=== PATIENT | female | born 1990 | race American Indian/Alaskan Native ===

== ENCOUNTER 2016-09-13 09:02 | Emergency (ER) | payer SELFPAY ==
[2016-09-13 09:14] VITALS: BP 121/74
[2016-09-13 09:47] LABS: Bilirubin,Urine NEG (Negative); Blood,Urine MOD (Negative); Ketones,Urine 20 mg/dL (Negative); Leukocyte Esterase,Urine MOD (Negative); Mucus,Urine FEW /HPF; Nitrite,Urine NEG (Negative); Protein,Urine <15 mg/dL mg/dL (Negative); Urobilinogen,Urine < 2.0 mg/dL (<2.0)
[2016-09-13 10:09] LABS: Basophils % (Auto) 0.2 % (0.0-1.8); Eosinophils % (Auto) 0.4 % (0.0-4.3); Hematocrit 42.5 % (30.3-42.9); Hemoglobin 14.2 gm/dl (10.1-14.3); Mean Corpuscular HGB Conc 33 % (30-34); Mean Corpuscular Hemoglobin 31 pg (28-32); Mean Corpuscular Volume 92 fl (79-97); Platelet Count 269 K/mm3 (140-440); Red Blood Count 4.62 M/mm3 (3.65-5.03); White Blood Count 6.9 K/mm3 (4.5-11.0)
[2016-09-13 10:19] LABS: Anion Gap 17 mmol/L; BUN/Creatinine Ratio 21.66; Blood Urea Nitrogen 13 mg/dL (7-17); Calcium 9.2 mg/dL (8.4-10.2); Carbon Dioxide 24 mmol/L (22-30); Glucose 106 mg/dL (65-100); Sodium 140 mmol/L (137-145)
--- NOTE | 2016-09-13 10:19 | Emergency Department Report ---
ED General Adult HPI - General Chief complaint: Abdominal Pain Stated complaint: DEHYDRATED/CHECK IUD Time Seen by Provider: 09/13/16 10:00 Source: patient Mode of arrival: Ambulatory Limitations: No Limitations - History of Present Illness Initial comments: Patient comes in the ER today with generalized complaints of increased thirst all the time, weight loss, generalized fatigue and simply wanted to get checked out. Patient does mention that she has a history of gestational diabetes when she was 5 years ago and is concerned that she might be a diabetic. Patient also concerned that she may have thyroid problems going on but denies any past history of thyroid problems. Patient states that she just cut off her menses cycle and denies any dysuria. Patient states that she has been feeling this way for approximately one week. Severity scale (0 -10): 3 - Related Data Previous Rx's Medication Instructions Recorded Last Taken Type Ciprofloxacin HCl [Ciprofloxacin 500 mg PO BID #14 tablet 09/13/16 Unknown Rx TAB] Allergies Allergy/AdvReac Type Severity Reaction Status Date / Time No Known Allergies Allergy Verified 10/25/15 22:42 ED Review of Systems ROS: Stated complaint: DEHYDRATED/CHECK IUD Other details as noted in HPI Constitutional: denies: chills, fever Eyes: denies: eye pain, eye discharge, vision change ENT: denies: ear pain, throat pain, congestion Respiratory: denies: cough, shortness of breath, wheezing Cardiovascular: denies: chest pain, palpitations, edema, syncope Endocrine: no symptoms reported, increased thirst, unexplained weight loss Gastrointestinal: denies: abdominal pain, nausea, vomiting, diarrhea, constipation Genitourinary: denies: urgency, dysuria, frequency, hematuria, discharge, abnormal menses Musculoskeletal: denies: back pain, joint swelling, arthralgia Skin: denies: rash, lesions, change in color Neurological: denies: headache, weakness, paresthesias Psychiatric: denies: anxiety, depression Hematological/Lymphatic: denies: easy bleeding, easy bruising ED Past Medical Hx - Past Medical History Previous Medical History?: No Additional medical history: thyroid - Surgical History Past Surgical History?: No - Social History Smoking Status: Never Smoker Substance Use Type: None - Medications Home Medications: Home Medications Medication Instructions Recorded Confirmed Last Taken Type Ciprofloxacin HCl [Ciprofloxacin 500 mg PO BID #14 tablet 09/13/16 Unknown Rx TAB] ED Physical Exam - General Limitations: No Limitations General appearance: alert, in no apparent distress - Head Head exam: Present: atraumatic, normocephalic, normal inspection - Eye Eye exam: Present: normal appearance, PERRL, EOMI Pupils: Present: normal accommodation - ENT ENT exam: Present: normal exam, normal orophraynx, mucous membranes moist, TM's normal bilaterally, normal external ear exam - Neck Neck exam: Present: normal inspection, full ROM. Absent: tenderness, lymphadenopathy, thyromegaly - Respiratory Respiratory exam: Present: normal lung sounds bilaterally. Absent: respiratory distress, wheezes, rales, rhonchi, stridor, chest wall tenderness, decreased breath sounds - Cardiovascular Cardiovascular Exam: Present: regular rate, normal rhythm. Absent: systolic murmur, diastolic murmur, rubs, gallop - GI/Abdominal GI/Abdominal exam: Present: soft, normal bowel sounds. Absent: distended, tenderness, guarding, rebound, rigid, organomegaly - Extremities Exam Extremities exam: Present: normal inspection, normal capillary refill. Absent: pedal edema - Back Exam Back exam: Present: normal inspection, full ROM. Absent: tenderness, CVA tenderness (R), CVA tenderness (L) - Neurological Exam Neurological exam: Present: alert, oriented X3, CN II-XII intact, normal gait, reflexes normal. Absent: motor sensory deficit - Psychiatric Psychiatric exam: Present: normal affect, normal mood - Skin Skin exam: Present: warm, dry, intact, normal color. Absent: rash ED Course Vital Signs 09/13/16 09:07 Temperature 98.5 F Pulse Rate 79 Respiratory 16 Rate Blood Pressure 121/74 Blood Pressure 121/78 [Left] O2 Sat by Pulse 99 Oximetry ED Medical Decision Making - Lab Data Result diagrams: 09/13/16 09:18 09/13/16 09:18 Lab Results 09/13/16 09/13/16 09/13/16 Range/Units 09:18 09:18 09:24 WBC 6.9 (4.5-11.0) K/mm3 RBC 4.62 (3.65-5.03) M/mm3 Hgb 14.2 (10.1-14.3) gm/dl Hct 42.5 (30.3-42.9) % MCV 92 (79-97) fl MCH 31 (28-32) pg MCHC 33 (30-34) % RDW 13.0 L (13.2-15.2) % Plt Count 269 (140-440) K/mm3 Lymph % (Auto) 24.7 (13.4-35.0) % [place] % (Auto) 4.6 (0.0-7.3) % Eos % (Auto) 0.4 (0.0-4.3) % Baso % (Auto) 0.2 (0.0-1.8) % Lymph # 1.7 (1.2-5.4) K/mm3 [place] # 0.3 (0.0-0.8) K/mm3 Eos # 0.0 (0.0-0.4) K/mm3 Baso # 0.0 (0.0-0.1) K/mm3 Seg Neutrophils % 70.1 H (40.0-70.0) % Seg Neutrophils # 4.9 (1.8-7.7) K/mm3 Sodium 140 (137-145) mmol/L Potassium 4.0 (3.6-5.0) mmol/L Chloride 103.0 (98-107) mmol/L Carbon Dioxide 24 (22-30) mmol/L Anion Gap 17 mmol/L BUN 13 (7-17) mg/dL Creatinine 0.6 L (0.7-1.2) mg/dL Estimated GFR > 60 ml/min BUN/Creatinine Ratio 21.66 % Glucose 106 H (65-100) mg/dL Calcium 9.2 (8.4-10.2) mg/dL TSH (0.270-4.200) mlU/mL Urine Color Yellow (Yellow) Urine Turbidity Clear (Clear) Urine pH 5.0 (5.0-7.0) Ur Specific [place] 1.020 (1.003-1.030) Urine Protein <15 mg/dl (Negative) mg/dL Urine Glucose (UA) Neg (Negative) mg/dL Urine Ketones 20 (Negative) mg/dL Urine Blood Mod (Negative) Urine Nitrite Neg (Negative) Ur Reducing Substances Not Reportable Urine Bilirubin Neg (Negative) Urine Ictotest Not Reportable Urine Urobilinogen < 2.0 (<2.0) mg/dL Ur Leukocyte Esterase Mod (Negative) Urine WBC (Auto) 1.0 (0.0-6.0) /HPF Urine RBC (Auto) 8.0 (0.0-6.0) /HPF U Epithel Cells (Auto) 5.0 (0-13.0) /HPF Urine Mucus Few /HPF Urine HCG, Qual Negative (Negative) 09/13/16 Range/Units 10:55 WBC (4.5-11.0) K/mm3 RBC (3.65-5.03) M/mm3 Hgb (10.1-14.3) gm/dl Hct (30.3-42.9) % MCV (79-97) fl MCH (28-32) pg MCHC (30-34) % RDW (13.2-15.2) % Plt Count (140-440) K/mm3 Lymph % (Auto) (13.4-35.0) % [place] % (Auto) (0.0-7.3) % Eos % (Auto) (0.0-4.3) % Baso % (Auto) (0.0-1.8) % Lymph # (1.2-5.4) K/mm3 [place] # (0.0-0.8) K/mm3 Eos # (0.0-0.4) K/mm3 Baso # (0.0-0.1) K/mm3 Seg Neutrophils % (40.0-70.0) % Seg Neutrophils # (1.8-7.7) K/mm3 Sodium (137-145) mmol/L Potassium (3.6-5.0) mmol/L Chloride (98-107) mmol/L Carbon Dioxide (22-30) mmol/L Anion Gap mmol/L BUN (7-17) mg/dL Creatinine (0.7-1.2) mg/dL Estimated GFR ml/min BUN/Creatinine Ratio % Glucose (65-100) mg/dL Calcium (8.4-10.2) mg/dL TSH 0.334 (0.270-4.200) mlU/mL Urine Color (Yellow) Urine Turbidity (Clear) Urine pH (5.0-7.0) Ur Specific [place] (1.003-1.030) Urine Protein (Negative) mg/dL Urine Glucose (UA) (Negative) mg/dL Urine Ketones (Negative) mg/dL Urine Blood (Negative) Urine Nitrite (Negative) Ur Reducing Substances Urine Bilirubin (Negative) Urine Ictotest Urine Urobilinogen (<2.0) mg/dL Ur Leukocyte Esterase (Negative) Urine WBC (Auto) (0.0-6.0) /HPF Urine RBC (Auto) (0.0-6.0) /HPF U Epithel Cells (Auto) (0-13.0) /HPF Urine Mucus /HPF Urine HCG, Qual (Negative) - Medical Decision Making Patient is nontoxic and hemodynamically stable. Laboratory studies ordered for further evaluation of patient's health. Results obtained and reviewed with patient room. I informed patient that she does not have any lab findings consistent with concerns for diabetes, anemia however her TSH levels are on the low end of normal which could be concerning for possible early hyperthyroidism. I discussed this with patient and I will refer patient to executive advisor for further evaluation and testing as appropriate. Patient is stable for discharge and is agreement with treatment plan. Critical care attestation.: If time is entered above; I have spent that time in minutes in the direct care of this critically ill patient, excluding procedure time. ED Disposition Clinical Impression: UTI (urinary tract infection), Weight loss, unintentional, Excessive thirst Disposition: DISCHARGED TO HOME OR SELFCARE Is pt being admited?: No Does the pt Need Aspirin: No Condition: Good Instructions: Urinary Tract Infection in Women (ED), Hyperthyroidism (ED) Prescriptions: Ciprofloxacin HCl [Ciprofloxacin TAB] 500 mg PO BID #14 tablet Referrals: PRIMARY CAREMD [Primary Care Provider] - 3-5 Days JOSE RENTERIA MD [Staff Physician] - 3-5 Days Time of Disposition: 12:28
== END 2016-09-13 12:37 | disposition home or self-care (01) ==
LOC: ED 09:02
DX: N39.0 Urinary tract infection, site not specified (principal); R63.4 Abnormal weight loss; R63.1 Polydipsia
CPT/HCPCS: 36415; 80048; 81001; 81025; 84443; 85025; 99283

== ENCOUNTER 2017-02-08 16:14 | Emergency (ER) | payer MEDICAID, OTHER ==
--- NOTE | 2017-02-08 17:52 | Emergency Department Report ---
Minor Respiratory - HPI Chief Complaint: Headache Stated Complaint: Possible sinus infection Time Seen by Provider: 02/08/17 17:34 Duration: 4 Days Pain Location: Facial, Nose Severity: moderate Minor Respiratory: Yes Rhinorrhea, Yes Able to Tolerate Fluids, No Sore Throat, No Ear Pain, No Cough, No Sick Contacts, No Hemoptysis, No Chest Pain, No Shortness of Breath, No Fever Other History: Pt reports sinus congestion/pain with green mucus x 3-4 days. No other complaints. No fever. ED Review of Systems ROS: Stated complaint: Possible sinus infection Other details as noted in HPI Comment: All other systems reviewed and negative Constitutional: denies: chills, fever Eyes: denies: eye pain, eye discharge, vision change ENT: congestion. denies: ear pain, throat pain Respiratory: denies: cough, shortness of breath, wheezing Cardiovascular: denies: chest pain, palpitations Endocrine: no symptoms reported Gastrointestinal: denies: abdominal pain, nausea, diarrhea Genitourinary: denies: urgency, dysuria, discharge Musculoskeletal: denies: back pain, joint swelling, arthralgia Skin: denies: rash, lesions Neurological: as per HPI, headache. denies: weakness, paresthesias Psychiatric: denies: anxiety, depression Hematological/Lymphatic: denies: easy bleeding, easy bruising ED Past Medical Hx - Past Medical History Previous Medical History?: Yes Additional medical history: thyroid - Surgical History Past Surgical History?: No - Social History Smoking Status: Never Smoker Substance Use Type: Prescribed - Medications Home Medications: Home Medications Medication Instructions Recorded Confirmed Last Taken Type Amoxicillin/Potassium Clav 1 each PO BID #20 tablet 02/08/17 Unknown Rx [Augmentin 875-125 Tablet] Fluticasone [Flonase] 2 spray NS QDAY #1 bottle 02/08/17 Unknown Rx Minor Respiratory Exam - Exam General: Vital signs noted. No distress. Alert and acting appropriately. HEENT: Yes Moist Mucous Membranes, Yes Maxillary Tenderness (R side), No Pharyngeal Erythema, No Pharyngeal Exudates, No Rhinorrhea, No Conjuctival Injection, No Frontal Tenderness Ear: Neither TM Bulge, Neither TM Erythema, Neither EAC Pain, Neither EAC Discharge Neck: Yes Adenopathy (mild cervical), Yes Supple (no meningeal signs) Lungs: Yes Good Air Exchange, No Wheezes, No Ronchi, No Stridor, No Cough, No Labored Respirations, No Retractions, No Use of Accessory Muscles, No Other Abnormal Lung Sounds Heart: Yes Regular, No Murmur Abdomen: Yes Normal Bowel Sounds, No Tenderness, No Peritoneal Signs Skin: No Rash, No Edema Neurologic: Alert and oriented, no deficits. Musculoskeletal: Unremarkable. ED Course Vital Signs 02/08/17 16:44 Temperature 98.1 F Pulse Rate 82 Respiratory 18 Rate Blood Pressure 109/74 O2 Sat by Pulse 98 Oximetry - Reevaluation(s) Reevaluation #1: 02/08/17 17:49 Pt is in NAD and stable for d/c. ED Medical Decision Making - Medical Decision Making Pt with acute sinusitis, R maxillary. Will give Augmentin and Flonase and have her follow with PCP. - Differential Diagnosis sinusitis, uri, allergies Critical care attestation.: If time is entered above; I have spent that time in minutes in the direct care of this critically ill patient, excluding procedure time. ED Disposition Clinical Impression: Acute maxillary sinusitis, unspecified Qualifiers: Recurrence: not specified as recurrent Qualified Code(s): J01.00 - Acute maxillary sinusitis, unspecified Disposition: - TO HOME OR SELFCARE Is pt being admited?: No Condition: Good Instructions: Sinusitis (ED) Prescriptions: Amoxicillin/Potassium Clav [Augmentin 875-125 Tablet] 1 each PO BID #20 tablet Fluticasone [Flonase] 2 spray NS QDAY #1 bottle Referrals: PRIMARY CARE, [Primary Care Provider] - 3-5 Days Time of Disposition: 17:51
[2017-02-08 18:03] VITALS: BP 119/76
== END 2017-02-08 18:03 | disposition home or self-care (01) ==
LOC: ED 16:14
DX: J01.00 Acute maxillary sinusitis, unspecified (principal)
CPT/HCPCS: 99282

== ENCOUNTER 2017-08-04 07:54 | Emergency (ER) | payer MEDICAID ==
[2017-08-04 08:29] VITALS: BP 108/69
--- NOTE | 2017-08-04 09:00 | Emergency Department Report ---
ED Back Pain/Injury HPI - General Chief Complaint: Back Pain/Injury Stated Complaint: BACK PAIN Time Seen by Provider: 08/04/17 08:36 Source: patient Limitations: No Limitations - History of Present Illness Initial Comments: Patient reports that she has mid left upper back pain. She stated that she slept on the cell phone Friday night and woke up Friday morning with backache. Pain is 4-10 and aching. Denies any numbness or tingling to extremities. Denies any trauma. Denies any vaginal bleeding or discharge. Denies any urinary burning, frequency or urgency. Denies any nausea or vomiting. Denies any abdominal pain. Denies any fever or chills. No medication taken pain is worse with leaning forward better at rest. Denies history of blood clots, swelling to legs, family history of blood clots and her control pills. Denies recent long distance travel. She denies any chest pain or shortness of breath MD Complaint: back pain Onset/Timin -: days(s) Similar Symptoms Previously: No Place: home Radiation: none Severity: mild Severity scale (0 -10): 4 Quality: aching Consistency: intermittent Improves With: other (rest) Worsens With: other (leaning forward) Context: other (patient reports that she slept on hard sofa and when she woke up she has left upper back pain) Associated Symptoms: denies: confusion, weakness, chest pain, numbness, difficulty walking, cough, difficulty urinating, diaphoresis, incontinence, fever/chills, constipation, headaches, abdominal pain, loss of appetite, malaise , nausea/vomiting, rash, seizure, shortness of breath, syncope Treatments Prior to Arrival: other (none) - Related Data Previous Rx's Medication Instructions Recorded Last Taken Type Amoxicillin/Potassium Clav 1 each PO BID #20 tablet 02/08/17 Unknown Rx [Augmentin 875-125 Tablet] Fluticasone [Flonase] 2 spray NS QDAY #1 bottle 02/08/17 Unknown Rx Azelastine 0.1% (Nf) [Astelin (Nf)] 137 mcg NS QDAY PRN #1 bottle 02/12/17 Unknown Rx Loratadine [Claritin] 10 mg PO DAILY PRN #30 tablet 02/12/17 Unknown Rx Naproxen 250 mg PO BID PRN #30 tablet 02/12/17 Unknown Rx Ondansetron [Zofran Odt] 4 mg PO Q8H PRN #8 tab.rapdis 02/12/17 Unknown Rx Naproxen 500 mg PO Q12H PRN #12 tablet 08/04/17 Unknown Rx Allergies Allergy/AdvReac Type Severity Reaction Status Date / Time No Known Allergies Allergy Verified 10/25/15 22:42 ED Review of Systems ROS: Stated complaint: BACK PAIN Other details as noted in HPI Comment: All other systems reviewed and negative Constitutional: no symptoms reported Respiratory: no symptoms reported Cardiovascular: denies: chest pain, palpitations, dyspnea on exertion, edema, syncope, paroxysmal nocturnal dyspnea Gastrointestinal: denies: abdominal pain, nausea, vomiting, constipation Genitourinary: denies: dysuria, frequency, hematuria, discharge, abnormal menses , dyspareunia Musculoskeletal: back pain. 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 denies: Family history: no significant family history - Social History Smoking Status: Never Smoker Alcohol use: none Drug use: none ED Back Pain Physical Exam - Exam General: Vital signs noted. No distress. Alert and acting appropriately. This is a 27-year-old female well-nourished well-developed in no acute distress Lungs:Clear Auscultated bilaterally nor rhonchi wheezes or rales CV: S2: Regular rate and rhythm Psych: Normal mood and behavior Skin: Clean dry and intact and no rash or lesions Neurological: Neurological: GCS at 15, Pt is alert and oriented 3 speech is clear . Bilateral hand chief nuclear medicine technologist strong and equal. Normal gait. Negative Romberg and no pronator drift. Normal Reflexes. No motor or sensory deficit Back/Abdomen: No Abdominal Tenderness (nontender to palpate in all quadrants), No Perithoracic Tenderness (nontender to palpate bilaterally), No Perilumbar Tenderness (on tender to palpate), No Sacroiliac Tenderness (nontender to palpate), No Flank Tenderness (no CVA tenderness), No Straight Leg Raise Pain ( negative straight leg raises bilateral. No saddle anesthesia) Neuro: Yes Normal Sensation, Yes Normal DTR's, Yes Normal Gait (ambulates without any difficulties), No Motor Weakness ED Course Vital Signs 08/04/17 08:26 Temperature 98 F Pulse Rate 77 Respiratory 16 Rate Blood Pressure 108/69 O2 Sat by Pulse 99 Oximetry - Reevaluation(s) Reevaluation #1: 08/04/17 12:06 She given Toradol 60 mg IM in emergency room which relieved her pain. Ed Back Pain Tests - Tests Tests: Normal UA (negative . Urinalysis normal findings. ), Normal X Rays (chest x-ray normal findings) ED Medical Decision Making - Lab Data Lab Results 08/04/17 08/04/17 Range/Units 08:51 09:54 D-Dimer 206.93 (0-234) ng/mlDDU Urine Color Yellow (Yellow) Urine Turbidity Clear (Clear) Urine pH 6.0 (5.0-7.0) Ur Specific [place] 1.020 (1.003-1.030) Urine Protein <15 mg/dl (Negative) mg/dL Urine Glucose (UA) Neg (Negative) mg/dL Urine Ketones Tr (Negative) mg/dL Urine Blood Sm (Negative) Urine Nitrite Neg (Negative) Urine Bilirubin Neg (Negative) Urine Urobilinogen < 2.0 (<2.0) mg/dL Ur Leukocyte Esterase Neg (Negative) Urine WBC (Auto) < 1.0 (0.0-6.0) /HPF Urine RBC (Auto) 13.0 (0.0-6.0) /HPF U Epithel Cells (Auto) 5.0 (0-13.0) /HPF Urine Mucus 1+ /HPF Urine HCG, Qual Negative (Negative) - Radiology Data Radiology results: report reviewed Chest x-ray with negative findings - Medical Decision Making ED course: This is a 27-year-old female here for left upper back pain and believes she injured her back while she was sleeping and heart couch 2 days ago. Pain is localized to the left upper back. Back and neurological exam is normal. Urinalysis normal, d-dimer is negative and based on PERC rule,Patient' s with 0 risk for pulmonary embolism. I discussed results of patient and also diagnosis and treatment plan and she voiced understanding. Patient does have access to primary care but she does not have a primary care doctor. I discussed the patient that I refer her to some outside Medical Center for further evaluation and follow-up for left upper back pain. Patient discharged home with prescription for naproxen. He is given Toradol 60 mg IM in emergency room which relieved her back pain. Critical care attestation.: If time is entered above; I have spent that time in minutes in the direct care of this critically ill patient, excluding procedure time. ED Disposition Clinical Impression: Upper back pain on left side Disposition: DC-01 TO HOME OR SELFCARE Is pt being admited?: No Does the pt Need Aspirin: No Condition: Stable Instructions: Back Pain (ED) Additional Instructions: Please state naproxen as prescribed for back pain See referral to [facility] Prescriptions: Naproxen 500 mg PO Q12H PRN #12 tablet PRN Reason: back pain Referrals: [facility] [Outside] - 2-3 Days Forms: Work/School Release Form(ED)
[2017-08-04] MEDS ORDERED: TORADOL IM ONE (09:02)
[2017-08-04 09:19] LABS: Bilirubin,Urine NEG (Negative); Blood,Urine SM (Negative); Color,Urine Yellow (Yellow); Mucus,Urine 1+ /HPF; Protein,Urine <15 mg/dL mg/dL (Negative); Urobilinogen,Urine < 2.0 mg/dL (<2.0); WBC,Urine < 1.0 /HPF (0.0-6.0)
[2017-08-04 09:30] LABS: HCG Qualitative,Urine Negative (Negative)
--- NOTE | 2017-08-04 10:01 | XRay Report ---
ROUTINE CHEST, TWO VIEWS: HISTORY: Chest pain, left upper back pain. The trachea, heart, mediastinal contour, lung bateman and bony thorax are unremarkable. IMPRESSION: Unremarkable chest x-ray.
== END 2017-08-04 12:20 | disposition home or self-care (01) ==
LOC: ED 07:54
DX: M54.89 Other dorsalgia (principal)
CPT/HCPCS: 36415; 71046; 81001; 81025; 85379; 96372; 99283; J1885

== ENCOUNTER 2017-10-03 08:44 | Emergency (ER) | payer MEDICAID ==
[2017-10-03 09:09] VITALS: BP 113/66
--- NOTE | 2017-10-03 10:38 | Emergency Department Report ---
ED Eye Problem HPI - General Chief complaint: Eye Problems Stated complaint: EYE PAIN Time Seen by Provider: 10/03/17 10:37 Source: patient Mode of arrival: Ambulatory Limitations: No Limitations - History of Present Illness Initial comments: 27-year-old female past medical history hypothyroid disorder presents with complaint of 2 days of right eyelid discomfort and swelling. Denies any new blurry vision denies fevers or chills denies any trauma or any material hitting her right eye. She is awake alert and oriented 3 not in acute distress. Patient is complaining of slight sticky discharge from right eye. Patient adamantly denies any trauma to right eye. Does not wear contact lenses. MD chief complaint: eye pain, eye redness Onset/Timin -: days(s) Location: right eye Place: home Eye Symptoms: burning, redness, itching, discharge Severity: mild If Pain, Quality: burning - Related Data Previous Rx's Medication Instructions Recorded Last Taken Type Amoxicillin/Potassium Clav 1 each PO BID #20 tablet 02/08/17 Unknown Rx [Augmentin 875-125 Tablet] Fluticasone [Flonase] 2 spray NS QDAY #1 bottle 02/08/17 Unknown Rx Azelastine 0.1% (Nf) [Astelin (Nf)] 137 mcg NS QDAY PRN #1 bottle 02/12/17 Unknown Rx Loratadine [Claritin] 10 mg PO DAILY PRN #30 tablet 02/12/17 Unknown Rx Naproxen 250 mg PO BID PRN #30 tablet 02/12/17 Unknown Rx Ondansetron [Zofran Odt] 4 mg PO Q8H PRN #8 tab.rapdis 02/12/17 Unknown Rx Naproxen 500 mg PO Q12H PRN #12 tablet 08/04/17 Unknown Rx Erythromycin [Erythromycin Ophth 1 applic OP BID #1 tube 10/03/17 Unknown Rx Oint] Ibuprofen [Motrin] 600 mg PO Q8H PRN #20 tablet 10/03/17 Unknown Rx Naphazoline HCl/Pheniramine 1 drop OP Q4H #1 drops 10/03/17 Unknown Rx [Naphcon-A Eye Drops] Allergies Allergy/AdvReac Type Severity Reaction Status Date / Time No Known Allergies Allergy Verified 10/25/15 22:42 ED Review of Systems ROS: Stated complaint: EYE PAIN Other details as noted in HPI Constitutional: denies: chills, fever Eyes: eye pain. denies: eye discharge, vision change ENT: denies: ear pain, throat pain Respiratory: denies: cough, shortness of breath, wheezing Cardiovascular: denies: chest pain, palpitations Endocrine: no symptoms reported Gastrointestinal: denies: abdominal pain, nausea, diarrhea Genitourinary: denies: urgency, dysuria, discharge Musculoskeletal: denies: back pain, joint swelling, arthralgia Skin: denies: rash, lesions Neurological: denies: headache, weakness, paresthesias Psychiatric: denies: anxiety, depression Hematological/Lymphatic: denies: easy bleeding, easy bruising ED Past Medical Hx - Past Medical History Previous Medical History?: No Additional medical history: thyroid, sinus infection - Surgical History Past Surgical History?: No - Social History Smoking Status: Never Smoker Substance Use Type: Marijuana - Medications Home Medications: Home Medications Medication Instructions Recorded Confirmed Last Taken Type Amoxicillin/Potassium Clav 1 each PO BID #20 tablet 02/08/17 Unknown Rx [Augmentin 875-125 Tablet] Fluticasone [Flonase] 2 spray NS QDAY #1 bottle 02/08/17 Unknown Rx Azelastine 0.1% (Nf) [Astelin (Nf)] 137 mcg NS QDAY PRN #1 bottle 02/12/17 Unknown Rx Loratadine [Claritin] 10 mg PO DAILY PRN #30 tablet 02/12/17 Unknown Rx Naproxen 250 mg PO BID PRN #30 tablet 02/12/17 Unknown Rx Ondansetron [Zofran Odt] 4 mg PO Q8H PRN #8 tab.rapdis 02/12/17 Unknown Rx Naproxen 500 mg PO Q12H PRN #12 tablet 08/04/17 Unknown Rx Erythromycin [Erythromycin Ophth 1 applic OP BID #1 tube 10/03/17 Unknown Rx Oint] Ibuprofen [Motrin] 600 mg PO Q8H PRN #20 tablet 10/03/17 Unknown Rx Naphazoline HCl/Pheniramine 1 drop OP Q4H #1 drops 10/03/17 Unknown Rx [Naphcon-A Eye Drops] ED Physical Exam - General Limitations: No Limitations General appearance: alert, in no apparent distress - Head Head exam: Present: atraumatic, normocephalic - Eye Eye exam: Present: normal appearance, PERRL, EOMI - Expanded Eye Exam Expanded Eyelids: Swelling: Right (right upper lid blepharitis) Pupils: Regular, Round: Bilateral, Reactive: Bilateral Visual acuity (R) = 20/: 20 Visual acuity (L) = 20/: 20 - ENT ENT exam: Present: mucous membranes moist - Neck Neck exam: Present: normal inspection - Respiratory Respiratory exam: Present: normal lung sounds bilaterally. Absent: respiratory distress - Cardiovascular Cardiovascular Exam: Present: regular rate, normal rhythm. Absent: systolic murmur, diastolic murmur, rubs, gallop - GI/Abdominal GI/Abdominal exam: Present: soft, normal bowel sounds - Extremities Exam Extremities exam: Present: normal inspection - Back Exam Back exam: Present: normal inspection - Neurological Exam Neurological exam: Present: alert, oriented X3 - Psychiatric Psychiatric exam: Present: normal affect, normal mood - Skin Skin exam: Present: warm, dry, intact, normal color. Absent: rash ED Course Vital Signs 10/03/17 09:07 Temperature 98 F Pulse Rate 69 Respiratory 16 Rate Blood Pressure 113/66 O2 Sat by Pulse 98 Oximetry ED Medical Decision Making - Medical Decision Making A/P: Blepharitis right upper eyelid 1-Motrin when necessary, artificial Tears 2-warm compresses. No visible abscess on exam him a topical erythromycin 3-ophthalmology follow up Critical care attestation.: If time is entered above; I have spent that time in minutes in the direct care of this critically ill patient, excluding procedure time. ED Disposition Clinical Impression: Blepharitis of eyelid of right eye Qualifiers: Blepharitis type: ulcerative Eyelid: upper Qualified Code(s): H01.011 - Ulcerative blepharitis right upper eyelid Disposition: DC-01 TO HOME OR SELFCARE Is pt being admited?: No Does the pt Need Aspirin: No Condition: Stable Instructions: Blepharitis (ED) Prescriptions: Erythromycin [Erythromycin Ophth Oint] 1 applic OP BID #1 tube Ibuprofen [Motrin] 600 mg PO Q8H PRN #20 tablet PRN Reason: Pain Naphazoline HCl/Pheniramine [Naphcon-A Eye Drops] 1 drop OP Q4H #1 drops Referrals: PEPE DELA CRUZ MD [Staff Physician] - 3-5 Days DAMASO RECINOS MD [Staff Physician] - 3-5 Days Forms: Accompanied Note, Work/School Release Form(ED) Time of Disposition: 10:56
== END 2017-10-03 11:13 | disposition home or self-care (01) ==
LOC: ED 08:44
DX: H01.011 Ulcerative blepharitis right upper eyelid (principal); F12.10 Cannabis abuse, uncomplicated
CPT/HCPCS: 99282

== ENCOUNTER 2018-01-02 08:10 | Emergency (ER) | payer MEDICAID ==
[2018-01-02 08:40] VITALS: BP 105/68
--- NOTE | 2018-01-02 10:49 | Emergency Department Report ---
ED Neck Pain/Injury HPI - General Chief Complaint: Headache Stated Complaint: NECK/BACK PAIN Time Seen by Provider: 01/02/18 10:08 Mode of arrival: Ambulatory Limitations: No Limitations - History of Present Illness Initial Comments: 27-year-old female with mild frontal headache and pain to lower neck/upper back. Patient states she feels like she slept wrong way and has a "crook" in her neck. Patient denies fever. Reports history of chronic sinusitis, however denies current runny nose, cough, sore throat. Patient states has not taken anything for pain. MD Complaint: neck pain, upper back pain -: Gradual, days(s) (2) Severity: mild Quality: aching Consistency: intermittent Improves With: immobilization Worsens With: movement of neck Context: unknown Associated Symptoms: headache. denies: fever, numbness, tingling, difficulty walking, difficulty swallowing, nausea, vomiting Treatments Prior to Arrival: none - Related Data Previous Rx's Medication Instructions Recorded Last Taken Type Amoxicillin/Potassium Clav 1 each PO BID #20 tablet 02/08/17 Unknown Rx [Augmentin 875-125 Tablet] Fluticasone [Flonase] 2 spray NS QDAY #1 bottle 02/08/17 Unknown Rx Azelastine 0.1% (Nf) [Astelin (Nf)] 137 mcg NS QDAY PRN #1 bottle 02/12/17 Unknown Rx Loratadine [Claritin] 10 mg PO DAILY PRN #30 tablet 02/12/17 Unknown Rx Naproxen 250 mg PO BID PRN #30 tablet 02/12/17 Unknown Rx Ondansetron [Zofran Odt] 4 mg PO Q8H PRN #8 tab.rapdis 02/12/17 Unknown Rx Naproxen 500 mg PO Q12H PRN #12 tablet 08/04/17 Unknown Rx Erythromycin [Erythromycin Ophth 1 applic OP BID #1 tube 10/03/17 Unknown Rx Oint] Ibuprofen [Motrin] 600 mg PO Q8H PRN #20 tablet 10/03/17 Unknown Rx Naphazoline HCl/Pheniramine 1 drop OP Q4H #1 drops 10/03/17 Unknown Rx [Naphcon-A Eye Drops] Methocarbamol [Robaxin-750] 750 mg PO Q6HR PRN #20 tablet 01/02/18 Unknown Rx Naproxen [Naprosyn] 500 mg PO BID #20 tablet 01/02/18 Unknown Rx Allergies Allergy/AdvReac Type Severity Reaction Status Date / Time No Known Allergies Allergy Verified 10/25/15 22:42 ED Review of Systems ROS: Stated complaint: NECK/BACK PAIN Other details as noted in HPI Comment: All other systems reviewed and negative Constitutional: denies: chills, fever ENT: other (denies rhinorrhea). denies: ear pain, throat pain Respiratory: denies: cough Gastrointestinal: denies: nausea, vomiting Musculoskeletal: as per HPI Skin: denies: rash Neurological: headache ED Past Medical Hx - Past Medical History Previous Medical History?: Yes Additional medical history: thyroid, sinus infection - Surgical History Past Surgical History?: No - Social History Smoking Status: Never Smoker Substance Use Type: None - Medications Home Medications: Home Medications Medication Instructions Recorded Confirmed Last Taken Type Amoxicillin/Potassium Clav 1 each PO BID #20 tablet 02/08/17 Unknown Rx [Augmentin 875-125 Tablet] Fluticasone [Flonase] 2 spray NS QDAY #1 bottle 02/08/17 Unknown Rx Azelastine 0.1% (Nf) [Astelin (Nf)] 137 mcg NS QDAY PRN #1 bottle 02/12/17 Unknown Rx Loratadine [Claritin] 10 mg PO DAILY PRN #30 tablet 02/12/17 Unknown Rx Naproxen 250 mg PO BID PRN #30 tablet 02/12/17 Unknown Rx Ondansetron [Zofran Odt] 4 mg PO Q8H PRN #8 tab.rapdis 02/12/17 Unknown Rx Naproxen 500 mg PO Q12H PRN #12 tablet 08/04/17 Unknown Rx Erythromycin [Erythromycin Ophth 1 applic OP BID #1 tube 10/03/17 Unknown Rx Oint] Ibuprofen [Motrin] 600 mg PO Q8H PRN #20 tablet 10/03/17 Unknown Rx Naphazoline HCl/Pheniramine 1 drop OP Q4H #1 drops 10/03/17 Unknown Rx [Naphcon-A Eye Drops] Methocarbamol [Robaxin-750] 750 mg PO Q6HR PRN #20 tablet 01/02/18 Unknown Rx Naproxen [Naprosyn] 500 mg PO BID #20 tablet 01/02/18 Unknown Rx ED Physical Exam - General Limitations: No Limitations General appearance: alert, in no apparent distress, other (appears nontoxic) - Head Head exam: Present: atraumatic, normocephalic - Eye Eye exam: Present: normal appearance - ENT ENT exam: Present: mucous membranes moist - Neck Neck exam: Present: normal inspection, tenderness (tenderness around C7/ T1), full ROM. Absent: meningismus - Respiratory Respiratory exam: Present: normal lung sounds bilaterally. Absent: respiratory distress - Cardiovascular Cardiovascular Exam: Present: regular rate, normal rhythm - GI/Abdominal GI/Abdominal exam: Present: soft. Absent: tenderness - Extremities Exam Extremities exam: Present: normal inspection - Back Exam Back exam: Present: normal inspection, full ROM - Neurological Exam Neurological exam: Present: alert, oriented X3, CN II-XII intact. Absent: motor sensory deficit - Psychiatric Psychiatric exam: Present: normal affect, normal mood - Skin Skin exam: Present: warm, dry, intact, normal color. Absent: rash ED Course Vital Signs 01/02/18 08:37 Temperature 98.6 F Pulse Rate 72 Respiratory 16 Rate Blood Pressure 105/68 O2 Sat by Pulse 98 Oximetry ED Medical Decision Making - Medical Decision Making 27-year-old female with reports of mild frontal headache and lower neck pain. Vital signs normal. Patient appears nontoxic. Range of motion is normal in neck with no signs of meningitis. Patient has mild tenderness and lower C-spine /upper T-spine. Normal neuro exam. Will give prescription for muscle relaxer and anti-inflammatory. Patient given return precautions - Differential Diagnosis muscle strain, tension CANDELARIO Critical care attestation.: If time is entered above; I have spent that time in minutes in the direct care of this critically ill patient, excluding procedure time. ED Disposition Clinical Impression: Cervical myofascial strain Disposition: DC-01 TO HOME OR SELFCARE Is pt being admited?: No Condition: Stable Instructions: Muscle Strain (ED) Additional Instructions: Return to the ER if you develop fever, worsening pain, lethargy, confusion. Prescriptions: Methocarbamol [Robaxin-750] 750 mg PO Q6HR PRN #20 tablet PRN Reason: Spasms Naproxen [Naprosyn] 500 mg PO BID #20 tablet Referrals: PRIMARY CARE, [Primary Care Provider] - 3-5 Days [facility] [Provider Group] - 3-5 Days [facility] [place] [Outside] - 3-5 Days Time of Disposition: 10:53
== END 2018-01-02 11:18 | disposition home or self-care (01) ==
LOC: ED 08:10
DX: S16.1XXA Strain of muscle, fascia and tendon at neck level, initial encounter (principal); R51 Headache; X58.XXXA Exposure to other specified factors, initial encounter; Y93.89 Activity, other specified; Y92.89 Other specified places as the place of occurrence of the external cause; Y99.8 Other external cause status
CPT/HCPCS: 99282

== ENCOUNTER 2018-11-16 08:17 | Emergency (ER) | payer MEDICAID ==
[2018-11-16 08:24] VITALS: BP 118/73
[2018-11-16 08:45] LABS: Bilirubin,Urine NEG (Negative); Blood,Urine MOD (Negative); Color,Urine Yellow (Yellow); Urobilinogen,Urine < 2.0 mg/dL (<2.0)
[2018-11-16 08:49] LABS: WBC,Urine > 182.0 /HPF (0.0-6.0)
[2018-11-16 09:00] LABS: HCG Qualitative,Urine Negative (Negative)
--- NOTE | 2018-11-16 09:03 | Emergency Department Report ---
ED Dysuria HPI - HPI Chief Complaint: Urogenital-Female Stated Complaint: UTI/PAIN Time Seen by Provider: 11/16/18 09:00 Duration: 3 Days Location of Discomfort: Suprapubic Severity: Mild Symptoms: Dysuria: Yes, Frequency: No, Suprapubic Pain: Yes, Flank Pain: No, Fever: No, Hematuria: No, Abdominal Pain: No, Previous UTI's: Yes Other History: 28 yo with dysuria and pain radiating to left back. no vag dc. 1 sexual partner. not concerned with std. on control patch. ambulatory. non toxic. no n/v. no fever. ED Review of Systems ROS: Stated complaint: UTI/PAIN Other details as noted in HPI Comment: All other systems reviewed and negative ED Past Medical Hx - Past Medical History Previous Medical History?: Yes Additional medical history: thyroid, sinus infection - Surgical History Past Surgical History?: No - Family History Family history: no significant - Social History Smoking Status: Never Smoker Substance Use Type: None - Medications Home Medications: Home Medications Medication Instructions Recorded Confirmed Last Taken Type Fluconazole [Diflucan TAB] 100 mg PO QDAY #1 tablet 11/16/18 Unknown Rx Sulfamethoxazole/Trimethoprim 1 each PO BID #10 tablet 11/16/18 Unknown Rx [Bactrim DS TAB] Dysuria Exam - Exam General: Vital signs noted. No distress. Alert and acting appropriately. Exam: Yes Moist Mucous Membranes, Yes CVA Tenderness, No Abdominal Tenderness, No Rigidity or Guarding Labs: Lab Results 11/16/18 Range/Units 08:20 Urine Color Yellow (Yellow) Urine Turbidity Turbid (Clear) Urine pH 6.0 (5.0-7.0) Ur Specific [place] 1.014 (1.003-1.030) Urine Protein 30 mg/dl (Negative) mg/dL Urine Glucose (UA) Neg (Negative) mg/dL Urine Ketones Tr (Negative) mg/dL Urine Blood Mod (Negative) Urine Nitrite Neg (Negative) Urine Bilirubin Neg (Negative) Urine Urobilinogen < 2.0 (<2.0) mg/dL Ur Leukocyte Esterase Lg (Negative) Urine WBC (Auto) > 182.0 H (0.0-6.0) /HPF Urine RBC (Auto) 10.0 (0.0-6.0) /HPF U Epithel Cells (Auto) 3.0 (0-13.0) /HPF Ur Transition Epith Cell 1 /HPF Urine HCG, Qual Negative (Negative) ED Course Vital Signs 11/16/18 08:19 Temperature 98 F Pulse Rate 89 Respiratory 18 Rate Blood Pressure 118/73 O2 Sat by Pulse 99 Oximetry ED Medical Decision Making - Medical Decision Making not concerned for STI 1 sexual partner no vag dc on control patch upreg neg irreg menses pos l cva tenderness on exam Lab Results 11/16/18 Range/Units 08:20 Urine Color Yellow (Yellow) Urine Turbidity Turbid (Clear) Urine pH 6.0 (5.0-7.0) Ur Specific [place] 1.014 (1.003-1.030) Urine Protein 30 mg/dl (Negative) mg/dL Urine Glucose (UA) Neg (Negative) mg/dL Urine Ketones Tr (Negative) mg/dL Urine Blood Mod (Negative) Urine Nitrite Neg (Negative) Urine Bilirubin Neg (Negative) Urine Urobilinogen < 2.0 (<2.0) mg/dL Ur Leukocyte Esterase Lg (Negative) Urine WBC (Auto) > 182.0 H (0.0-6.0) /HPF Urine RBC (Auto) 10.0 (0.0-6.0) /HPF U Epithel Cells (Auto) 3.0 (0-13.0) /HPF Ur Transition Epith Cell 1 /HPF Urine HCG, Qual Negative (Negative) Vital Signs 11/16/18 08:19 Temperature 98 F Pulse Rate 89 Respiratory 18 Rate Blood Pressure 118/73 O2 Sat by Pulse 99 Oximetry 1L NS/rocephin/toradol dc home with dc plan of care. emergency - Differential Diagnosis uti/pylo//sti Critical care attestation.: If time is entered above; I have spent that time in minutes in the direct care of this critically ill patient, excluding procedure time. ED Disposition Clinical Impression: Pyelonephritis Disposition: DC-01 TO HOME OR SELFCARE Is pt being admited?: No Does the pt Need Aspirin: No Condition: Stable Instructions: Urinary Tract Infection in Women (ED) Additional Instructions: hydrate well with water cranberry juice will help eat yogurt daily motrin or tylenol for pain or fever med as ordered today follow up pcp for recheck to be sure infection goes away urinate after sex Prescriptions: Sulfamethoxazole/Trimethoprim [Bactrim DS TAB] 1 each PO BID #10 tablet Fluconazole [Diflucan TAB] 100 mg PO QDAY #1 tablet Referrals: ISAAC EUCEDA MD [Staff Physician] - 3-5 Days Time of Disposition: 09:10
[2018-11-16] MEDS ORDERED: NACL 0.9% 1000 ML 1,000 ML IV ONE (09:07)
[2018-11-16] MEDS ORDERED: ROCEPHIN/NS 1 GM/50 ML 1 GM/50 ML BAG IV ONE (09:07)
[2018-11-16] MEDS ORDERED: TORADOL IV ONE (09:08)
== END 2018-11-16 10:25 | disposition home or self-care (01) ==
LOC: ED 08:17
DX: N12 Tubulo-interstitial nephritis, not specified as acute or chronic (principal); Z79.899 Other long term (current) drug therapy
CPT/HCPCS: 81001; 81025; 96365; 96375; 99283; J0696; J1885; J7030

== ENCOUNTER 2021-05-16 13:21 | Emergency (ER) | payer MEDICAID ==
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
[2021-05-16] MEDS ORDERED: KETOROLAC 10 MG TAB PO ONE (15:07)
[2021-05-16 15:58] VITALS: BP 100/70
== END 2021-05-16 19:09 | disposition home or self-care (01) ==
LOC: ED 13:21
DX: S46.819A Strain of other muscles, fascia and tendons at shoulder and upper arm level, unspecified arm, initial encounter (principal); M62.838 Other muscle spasm; V89.2XXA Person injured in unspecified motor-vehicle accident, traffic, initial encounter; Y93.89 Activity, other specified; Y92.89 Other specified places as the place of occurrence of the external cause; Y99.8 Other external cause status
CPT/HCPCS: 99282

== ENCOUNTER 2021-11-19 10:41 | Emergency (ER) | payer MEDICAID, OTHER ==
[2021-11-19 11:15] VITALS: BP 106/73
--- NOTE | 2021-11-19 11:16 | Emergency Department Report ---
Stated Complaint: 14 WKS /BLEEDING - HPI History of Present Illness: 31-year-old female past medical history of thyroid disease reports to the ER complaints of vaginal spotting today. Patient reports she is 14 weeks 3 days. Patient reports uncomfortable discomfort in the pelvis area. No other acute signs or symptoms reported. - ROS Review of Systems: Vaginal spotting Pelvic lower abdominal discomfort. No acute signs or symptoms reported - Exam Physical Exam: No acute distress. Alert and orient x4 No labored breathing Patient is ambulatory no assistance Skin intact and dry MSE screening note: Focused history and physical exam performed. Due to findings the following was ordered: MSE complete. Orders to be placed. Patient to be seen by another provider in the back. Triage complete. ED Disposition for MSE Condition: Stable
[2021-11-19 12:16] LABS: Basophils % (Auto) 0.1 % (0.0-1.8); Eosinophils # (Auto) 0.1 K/mm3 (0.0-0.4); Eosinophils % (Auto) 0.9 % (0.0-4.3); Hematocrit 35.6 % (30.3-42.9); Hemoglobin 12.2 gm/dl (10.1-14.3); Lymphocytes # (Auto) 1.9 K/mm3 (1.2-5.4); Lymphocytes % (Auto) 18.2 % (13.4-35.0); Mean Corpuscular HGB Conc 34 % (30-34); Mean Corpuscular Volume 94 fl (79-97); Monocytes # (Auto) 0.5 K/mm3 (0.0-0.8); Monocytes % (Auto) 5.1 % (0.0-7.3); Platelet Count 210 K/mm3 (140-440); Red Cell Distribution Width 13.7 % (13.2-15.2)
[2021-11-19 12:34] LABS: Alanine Aminotransferase 87 units/L (7-56); Albumin 3.7 g/dL (3.9-5); Blood Urea Nitrogen 5 mg/dL (7-17); Hemolysis Index 4
[2021-11-19 12:47] LABS: BUN/Creatinine Ratio 10
--- NOTE | 2021-11-19 13:35 | Ultrasound Report ---
ULTRASOUND OBSTETRIC INDICATION: vaginal spotting. Clinical Gestational Age (GA): 14.4 weeks TECHNIQUE: Transabdominal. COMPARISON: None available. FINDINGS: There is a single intrauterine . Biparietal Diameter = 3.1 cm = 15 weeks, 5 day(s). Head Circumference = 11.6 cm = 15 weeks, 5 day(s). Abdominal Circumference = 9.9 cm = 16 weeks, 0 day(s). Femur Length = 1.9 cm = 15 weeks, 4 day(s). Average Ultrasound Age (AUA) = 15 weeks, 5 day(s). Heart Rate: 154 beats per minute. Estimated Weight in grams (if calculated): Not calculated Estimated Weight Growth Percentile (if calculated): Not calculated Position: cephalic. Cervix: closed. Length in cm (if measured): 4.6 Placenta: anterior and free of the os. Amniotic Fluid Volume: normal Amniotic Fluid Index (MYRIAM) in cm (if calculated): Not calculated. Maternal Adnexa: No significant abnormality. Additional findings: There is an area of questionable subchorionic hemorrhage seen at the inferior ma rgin of the gestational sac measuring up to 4 cm. IMPRESSION: 1. Single, living intrauterine with estimated sonographic age of 15 weeks, 5 day(s). 2. Possible area of subchorionic hemorrhage as above without other significant abnormalities. Signer Name: Jb Lind MD Signed: 11/19/2021 1:31 PM Workstation Name: [id number]
[2021-11-19 14:03] LABS: Amorphous Crystals,Urine 2+; Bacteria,Urine 1+ /HPF (Negative); Mucus,Urine FEW /HPF
[2021-11-19 14:14] LABS: Color,Urine Yellow (Yellow)
[2021-11-19 14:15] LABS: Bilirubin,Urine Negative (Negative); Blood,Urine Negative (Negative); Protein,Urine <15 mg/dL mg/dL (Negative)
== END 2021-11-19 18:25 | disposition left against medical advice (07) ==
LOC: ED 10:41
DX: O20.9 Hemorrhage in early pregnancy, unspecified (principal); Z53.21 Procedure and treatment not carried out due to patient leaving prior to being seen by health care provider; Z3A.14 14 weeks gestation of pregnancy
CPT/HCPCS: 36415; 76805; 80053; 81001; 84702; 85025